=== PATIENT | male | born 1985 | race Caucasian/White ===

== ENCOUNTER 2019-02-14 21:00 | Emergency (ER) | payer OTHER ==
[2019-02-14 21:08] VITALS: BP 111/70; PULSE 90; RESP 18; TEMP 97.5
[2019-02-14] MEDS ORDERED: LIDOCAINE 1% INJ 10MG/ML (20 ML MDV) SQ ONE (21:19)
--- NOTE | 2019-02-14 21:20 | ED ---
General Adult HPI - General Chief complaint: Extremity Injury, Upper Stated complaint: Fall, elbow injury Time Seen by Provider: 02/14/19 21:08 Source: patient, RN notes reviewed, old records reviewed Mode of arrival: ambulatory Limitations: no limitations - History of Present Illness Initial comments: 33 -year-old male presenting for evaluation of right elbow injury. Patient fell on the ice. He's had laceration and bleeding at the site of injury. He has no complaints of pain in the elbow itself. No numbness or tingling in the hand. Denies any other injury. No head or neck trauma. No anticoagulation. No chronic medical conditions. He is uncertain of his tetanus is up-to-date. - Related Data Previous Rx's Medication Instructions Recorded methylPREDNISolone [Medrol Dose 4 mg PO DIRECTED #1 pack 11/28/15 Pack] Allergies Allergy/AdvReac Type Severity Reaction Status Date / Time No Known Allergies Allergy Verified 11/28/15 21:44 Review of Systems ROS Statement: Those systems with pertinent positive or pertinent negative responses have been documented in the HPI. ROS Other: All systems not noted in ROS Statement are negative. Past Medical History Past Medical History: No Reported History History of Any Multi-Drug Resistant Organisms: None Reported Past Surgical History: No Surgical Hx Reported Past Psychological History: No Psychological Hx Reported Smoking Status: Current every day smoker Past Alcohol Use History: Daily Past Drug Use History: None Reported General Exam Limitations: no limitations General appearance: alert, in no apparent distress Head exam: Present: atraumatic, normocephalic Eye exam: Present: normal appearance, PERRL, EOMI ENT exam: Present: normal exam Neck exam: Present: normal inspection. Absent: tenderness, meningismus Respiratory exam: Present: normal lung sounds bilaterally. Absent: respiratory distress, wheezes Cardiovascular Exam: Present: regular rate, normal rhythm GI/Abdominal exam: Present: soft. Absent: distended, tenderness, guarding Extremities exam: Present: full ROM, tenderness, other (3 cm irregular laceration over the olecranon process. Linear, full-thickness) Back exam: Present: normal inspection, full ROM Neurological exam: Present: alert, oriented X3, CN II-XII intact. Absent: motor sensory deficit Psychiatric exam: Present: normal affect, normal mood Skin exam: Present: warm Course Vital Signs 02/14/19 21:03 Temperature 97.5 F L Pulse Rate 90 Respiratory 18 Rate Blood Pressure 111/70 O2 Sat by Pulse 96 Oximetry Procedures - Laceration Laceration #1 Consent Obtained: verbal consent Indication: laceration Site: upper extremity Description: linear Depth: simple, single layer, [id number] Anesthetic Used: lidocaine 1% Anesthesia Technique: local infiltration Amount (mls): 5 Pre-repair: wound explored, irrigated extensively, deep structures intact Type of Sutures: nylon Size of Sutures: 4-0 Number of Sutures: 5 Technique: simple, interrupted Patient Tolerated Procedure: well Additional Comments: There is exposed bone. Patient has normal range of motion at the elbow. No fracture seen on x-ray. Wound is extensively irrigated in the emergency department. Medical Decision Making - Medical Decision Making 33-year-old male with slip and fall on the ice with laceration of the right elbow. This is 3 cm in length full-thickness, over the olecranon right elbow. There is exposed bone, no fracture seen on x-ray. This is extensively irrigated in the emergency department. Laceration is repaired with 4-0 nylon suture. Patient tolerates procedure well. He is instructed to monitor for signs of infection. He will return for suture removal in 10-14 days. He will follow-up with orthopedics, as needed. Tetanus is updated., Disposition Clinical Impression: Elbow contusion, Laceration Disposition: HOME SELF-CARE Condition: Good Instructions (If sedation given, give patient instructions): Laceration (ED), Care For Your Stitches (ED) Is patient prescribed a controlled substance at d/c from ED?: No Referrals: None,Stated [Primary Care Provider] - 1-2 days Osbaldo Barrera DO [Medical Doctor] - 1-2 days Time of Disposition: 21:50
--- NOTE | 2019-02-14 21:29 | XR ---
EXAMINATION TYPE: XR elbow complete RT DATE OF EXAM: 02/14/2019 COMPARISON: NONE HISTORY: Fall on the elbow TECHNIQUE: 3 views FINDINGS: I see no fracture nor dislocation. Joint spaces are fairly normal. There is no sign of elbo w joint effusion. There is laceration deformity over the olecranon process. IMPRESSION: Laceration deformity. No fracture seen.
[2019-02-14] MEDS ORDERED: DIPH,PERTUS(ACELL)TETVAC-LF 0.5 ML VIAL IM ONE ×2 (21:45)
== END 2019-02-14 22:13 | disposition home or self-care (01) ==
LOC: EC 21:00
DX: S51.011A Laceration without foreign body of right elbow, initial encounter (principal); F17.200 Nicotine dependence, unspecified, uncomplicated; W00.0XXA Fall on same level due to ice and snow, initial encounter; Y92.89 Other specified places as the place of occurrence of the external cause
CPT/HCPCS: 73080; 90715; 99284; 90471; 12002; J2001

== ENCOUNTER → 2022-04-11 | Outpatient (CLI) | payer OTHER ==
--- NOTE | 2022-04-11 13:58 | US ---
EXAMINATION TYPE: US abdomen complete DATE OF EXAM: 04/11/2022 COMPARISON: NONE CLINICAL HISTORY: R11.11 VOMITING WITHOUT NAUSEA Patient states that he vomits 1-6 x a day and this has been going on for a year. TECHNIQUE: Multiple sonographic images of the abdomen are obtained. 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 Spleen: wnl Right Kidney: wnl Left Kidney: wnl Upper IVC: wnl Abd Aorta: partially obscured by overlying bowel gas The liver is homogenous. The intrahepatic portion of the IVC and proximal abdominal aorta are within normal limits. There is no evidence of cholelithiasis. The visualized portions of the pancreas are homogenous. The spleen is unremarkable. Kidneys are symmetric and free of hydronephrosis. No mercedes l lesions are seen. IMPRESSION: * Common bile duct dilation up to 8 mm which is abnormal for a patient of this age. Further evaluati on with MRI MRCP could be performed for evaluation of the biliary system. * Mild gallbladder wall thickening which could be due to underdistention. Correlate for signs and sy mptoms of cholecystitis. No gallstones visualized.
== END | disposition home or self-care (01) ==
LOC: RADUSWWP 12:23
PROVIDERS: ATTEND Internal Medicine
DX: K83.8 Other specified diseases of biliary tract (principal); K82.8 Other specified diseases of gallbladder; R11.11 Vomiting without nausea
CPT/HCPCS: 76700

== ENCOUNTER 2022-08-10 11:12 | Day surgery (SDC) | payer OTHER ==
[~2022-08-10 11:12] MED LIST: LACTATED RINGERS 1,000 ML IV SCH; LIDOCAINE 1% (10MG/ML) FOR IV START INTRADERMA PRN
[2022-08-10 12:50] VITALS: TEMP 98
[2022-08-10] MEDS ORDERED: PROPOFOL 10 MG/ML 20 ML VIAL IV ONE (14:04)
[2022-08-10] MEDS ORDERED: LIDOCAINE 2% INJ 20 MG/ML (2 ML VIAL) ONE (14:04)
--- NOTE | 2022-08-10 14:15 | P.PCN ---
Date of Procedure: 08/10/22 Procedure(s) Performed: BRIEF HISTORY: Patient is a 36-year-old, pleasant, white male scheduled for an upper endoscopy as a part of evaluation of chronic intermittent nausea vomiting for the last 1 year duration. He was recently started on Protonix 40 mg daily with some improvement in symptoms.. PROCEDURE PERFORMED: Esophagogastroduodenoscopy with biopsy. PREOPERATIVE DIAGNOSIS: And intermittent nausea vomiting of one year duration. IV sedation per anesthesia. PROCEDURE: After informed consent was obtained, the patient was brought into the endoscopy unit. IV sedation was administered by Anesthesia under continuous monitoring. Initially the Olympus GIF-140 video endoscope was inserted into the mouth. Esophagus intubated without any difficulty. It was gradually advanced into the stomach and duodenum and carefully examined. The bulb and the second part of the duodenum had decreased mucosal folds with some ridges suspicious for celiac disease and multiple biopsies were done from this area.. The scope at this time was withdrawn to the stomach, adequately insufflated with air, and upon careful examination, mucosa of the antrum, had mild gastritis and biopsies were done from this area. Mucosa of the body, cardia and the fundus appeared normal. The scope was then withdrawn into the esophagus. The GE junction was located at 39 cm from the incisors. The esophagus appeared normal. There were no erosions or ulcerations seen and the patient tolerated the procedure well. IMPRESSION: 1.. Decreased folds in the duodenum with some mucosal ridges suspicious for celiac disease status post multiple biopsies 2. Mild antral gastritis. RECOMMENDATIONS: The findings of this examination were discussed with the patient well as his family. We'll obtain celiac panel today and await biopsy results. He'll be seen in office in 3-4 weeks..
[2022-08-10 14:25] VITALS: RESP 16
[2022-08-10 14:37] VITALS: BP 122/82; PULSE 56
[2022-08-10 21:41] LABS: Gliadin AB IgA, Deaminated POSITIVE (NEGATIVE); Gliadin AB IgA, Unit 128.4 U/mL; Gliadin AB IgG, Deaminated POSITIVE (NEGATIVE); Gliadin AB IgG, Unit 26.7 U/mL
== END 2022-08-10 14:57 | disposition home or self-care (01) ==
LOC: ORWHC2ENDO 11:12
PROVIDERS: ATTEND Internal Medicine Gastroenterology
DX: K29.90 Gastroduodenitis, unspecified, without bleeding (principal); K21.00 Gastro-esophageal reflux disease with esophagitis, without bleeding; F17.200 Nicotine dependence, unspecified, uncomplicated; Z79.899 Other long term (current) drug therapy
CPT/HCPCS: 88305; 83516 ×4; 43239; J2704; J2001